=== PATIENT | female | born 1945 | race Caucasian/White ===

== ENCOUNTER 2023-03-09 16:29 | Inpatient (IN) ==
[2023-03-09] MEDS ORDERED: 0.9 % SODIUM CHLORIDE 250 ML IV SCH (16:45)
[2023-03-09] MEDS ORDERED: fentaNYL 100 MCG/2 ML VIAL IV ONE ×2 (17:34→18:50)
[2023-03-09 17:38] LABS: Blood Urea Nitrogen 17 mg/dL (8-23); Calcium 9.3 mg/dL (8.6-10.4); Carbon Dioxide 25 mmol/L (22-30); Chloride 106 mmol/L (96-108); Glomerular Filtration Rate 87; Glucose 127 mg/dL (70-105)
[2023-03-09 17:53] LABS: Basophils # (Auto) 0.01 K/mcL (0.00-0.30); Basophils % (Auto) 0.2 % (0.0-2.0); Eosinophils # (Auto) 0.02 K/mcL (0.00-0.70); Eosinophils % (Auto) 0.5 % (0.0-7.0); Hematocrit 33.9 % (34.1-44.9); Lymphocytes # (Auto) 0.46 K/mcL (1.50-4.80); Lymphocytes % (Auto) 10.6 % (15.5-49.0); Mean Cell Volume 100.3 fL (80.0-100.0); Mean Corpuscular HGB Conc 32.4 g/dL (31.0-36.0); Mean Platelet Volume 8.5 fL (8.8-12.5); Monocytes # (Auto) 1.21 K/mcL (0.10-0.90); Monocytes % (Auto) 27.8 % (1.0-12.0); Neutrophils % (Auto) 52.6 % (38.0-78.0); Platelet Count 161 K/mcL (140-440); RBC 3.38 M/mcL (3.59-5.38); Red Cell Distribution Width 13.1 % (11.5-14.5); WBC 4.4 K/mcL (4.5-11.0)
[2023-03-09 18:20] LABS: Prothrombin Time 13.6 sec (11.9-14.5)
[2023-03-09] MEDS ORDERED: HYDROmorphone 0.5 MG/0.5 ML SYRINGE IV ONE (18:52)
[2023-03-09] MEDS ORDERED: MAGNESIUM SULFATE 2 GM/50 ML BAG IV PRN (21:43)
[2023-03-09] MEDS ORDERED: IPRATROPIUM/ALBUTEROL 3 ML AMPUL.NEB NEB PRN (21:43)
[2023-03-09] MEDS ORDERED: HYDROcodone/APAP 5/325MG TABLET PO PRN (21:43)
[2023-03-09] MEDS ORDERED: POTASSIUM CHLORIDE 40 MEQ in DEXTROSE 5% IN WATER 500 ML IV PRN (21:43)
[2023-03-09] MEDS ORDERED: SENNOSIDES 1 TABLET PO PRN (21:43)
[2023-03-09] MEDS ORDERED: ACETAMINOPHEN 325 MG TABLET PO PRN (21:43)
[2023-03-09] MEDS ORDERED: ONDANSETRON 4 MG/2 ML VIAL IV PRN (21:43)
[2023-03-09] MEDS ORDERED: POLYETHYLENE GLYCOL 3350 17 GM PACKET PO PRN (21:43)
[2023-03-09] MEDS ORDERED: POTASSIUM CHLORIDE 20 MEQ TABLET PO PRN ×2 (21:43)
[2023-03-09] MEDS: morphine 4 MG/ML VIAL IV PRN (22:19)
[2023-03-09] MEDS: 0.9 % SODIUM CHLORIDE 10 ML SYRINGE IV SCH (22:23)
[2023-03-09] MEDS: DOCUSATE SODIUM 100 MG CAPSULE PO SCH (23:19)
[2023-03-09] MEDS ORDERED: 0.9 % SODIUM CHLORIDE 1,000 ML IV SCH (23:30)
[2023-03-10] MEDS: morphine 4 MG/ML VIAL IV PRN ×6 (01:31→19:24)
[2023-03-10 02:53] LABS: Appearance,Urine CLEAR (Clear); Bilirubin,Urine Negative (Negative); Color,Urine YELLOW; Culture Indicated,Urine No; Glucose,Urine (UA) Negative (Negative); Ketones,Urine Negative (Negative); Leukocyte Esterase,Urine 25 /uL (Negative); Mucus,Urine FEW /hpf; Nitrate,Urine Negative (Negative); Protein,Urine Negative (Negative); Specific Gravity,Urine 1.017 (1.000-1.035); Urine Blood >=1.0 mg/dL (Negative); Urine RBC > 182 /hpf (0-1); Urine Squamous Epithelial Cell 0 /hpf (0-4); Urine WBC 7 /hpf (0-4)
[2023-03-10] MEDS: 0.9 % SODIUM CHLORIDE 10 ML SYRINGE IV SCH ×3 (06:55→22:31)
[2023-03-10 07:04] LABS: ALT/SGPT < 5 U/L (<40); AST/SGOT 17 U/L (<32); Albumin 3.1 gm/dL (3.2-5.2); Albumin/Globulin Ratio 1.2 (1.0-2.3); Alkaline Phosphatase 74 U/L (39-117); Bilirubin,Direct < 0.2 mg/dL (0-0.3); Bilirubin,Total 0.4 mg/dL (0.1-1.0); Blood Urea Nitrogen 12 mg/dL (8-23); Calcium 8.8 mg/dL (8.6-10.4); Carbon Dioxide 22 mmol/L (22-30); Chloride 108 mmol/L (96-108); Globulin 2.5 gm/dL (2.2-3.7); Glomerular Filtration Rate 92; Glucose 145 mg/dL (70-105); Lactate Dehydrogenase 155 U/L (135-225); Phosphorous 3.1 mg/dL (2.5-4.5); Triglycerides 95 mg/dL (<150); Uric Acid 4.4 mg/dL (2.5-8.0)
[2023-03-10 07:39] LABS: Basophils # (Auto) 0.02 K/mcL (0.00-0.30); Basophils % (Auto) 0.3 % (0.0-2.0); Eosinophils # (Auto) 0 K/mcL (0.00-0.70); Eosinophils % (Auto) 0 % (0.0-7.0); Hematocrit 30.8 % (34.1-44.9); Hemoglobin 9.7 g/dL (11.2-15.7); Lymphocytes # (Auto) 0.23 K/mcL (1.50-4.80); Lymphocytes % (Auto) 3.3 % (15.5-49.0); Mean Cell Volume 104.1 fL (80.0-100.0); Mean Corpuscular HGB Conc 31.5 g/dL (31.0-36.0); Mean Platelet Volume 8.7 fL (8.8-12.5); Monocytes # (Auto) 1.42 K/mcL (0.10-0.90); Monocytes % (Auto) 20.1 % (1.0-12.0); Neutrophils % (Auto) 65.7 % (38.0-78.0); Platelet Count 148 K/mcL (140-440); RBC 2.96 M/mcL (3.59-5.38); Red Cell Distribution Width 13.4 % (11.5-14.5); WBC 7.1 K/mcL (4.5-11.0)
[2023-03-10] MEDS ORDERED: METHOCARBAMOL 750 MG TABLET PO PRN (08:20)
[2023-03-10] MEDS ORDERED: PSYLLIUM HUSK 5.8 GM PACKET PO PRN (08:29)
[2023-03-10] MEDS ORDERED: CARBOXYMETHYLCELLULOSE SODIUM 1 EACH DROPER.GEL OU PRN (08:31)
[2023-03-10] MEDS: TOLTERODINE 2 MG CAP.XL.24H PO SCH (09:48)
[2023-03-10] MEDS: SERTRALINE 50 MG TABLET PO SCH (09:49)
[2023-03-10] MEDS: POLYETHYLENE GLYCOL 3350 17 GM PACKET PO SCH (11:40)
[2023-03-10] MEDS: DOCUSATE SODIUM 100 MG CAPSULE PO SCH ×2 (11:40→22:30)
[2023-03-10] MEDS ORDERED: ceFAZolin 2 GM in DEXTROSE 5% IN WATER 50 ML IV SCH (15:30)
[2023-03-10] MEDS ORDERED: ROCURONIUM 10 MG/ML ML IV ONE (15:32)
[2023-03-10] MEDS ORDERED: PROPOFOL 200 MG/20 ML VIAL IV ONE (15:32)
[2023-03-10] MEDS ORDERED: fentaNYL 100 MCG/2 ML VIAL ONE (15:33)
[2023-03-10] MEDS ORDERED: METOCLOPRAMIDE 10 MG/2 ML VIAL ONE (15:42)
[2023-03-10] MEDS ORDERED: ONDANSETRON 4 MG/2 ML VIAL IV PRN ×2 (16:51)
[2023-03-10] MEDS ORDERED: BENZOCAINE/MENTHOL 1 LOZENGE PO PRN (16:51)
[2023-03-10] MEDS ORDERED: FLEETS ADULT 1 DOSE ENEMA PR PRN (16:51)
[2023-03-10] MEDS ORDERED: BISACODYL 10 MG SUPP.RECT PR PRN (16:51)
[2023-03-10] MEDS ORDERED: MAGNESIUM HYDROXIDE 30 ML ORAL.SUSP PO PRN (16:51)
[2023-03-10] MEDS ORDERED: TRANEXAMIC ACID 1,000 MG/10 ML VIAL IV ONE (16:51)
[2023-03-10] MEDS ORDERED: POLYETHYLENE GLYCOL 3350 17 GM PACKET PO PRN (16:51)
[2023-03-10] MEDS ORDERED: KETOROLAC 15 MG/ML VIAL IV PRN (16:51)
[2023-03-10] MEDS ORDERED: HYDROmorphone 1 MG/ML SYRINGE IV PRN (16:51)
[2023-03-10] MEDS ORDERED: ACETAMINOPHEN 325 MG TABLET PO PRN (16:51)
[2023-03-10] MEDS ORDERED: TEMAZEPAM 15 MG CAPSULE PO PRN ×2 (16:51→21:00)
[2023-03-10] MEDS ORDERED: IPRATROPIUM/ALBUTEROL 3 ML AMPUL.NEB NEB PRN ×2 (17:09→17:27)
[2023-03-10] MEDS ORDERED: FLUMAZENIL 0.1 MG/ML ML IV PRN (17:09)
[2023-03-10] MEDS ORDERED: NALOXONE HCL 0.4 MG/ML VIAL IV PRN (17:09)
[2023-03-10] MEDS ORDERED: LACTATED RINGERS 1,000 ML IV SCH (17:15)
[2023-03-10] MEDS: fentaNYL 100 MCG/2 ML VIAL IV PRN ×2 (17:22→17:29)
[2023-03-10] MEDS: 0.45 % SODIUM CHLORIDE 1,000 ML IV SCH (18:11)
[2023-03-10] MEDS: SENNOSIDES 1 TABLET PO SCH (22:30)
[2023-03-10] MEDS: ASPIRIN 81 MG TAB.CHEW CHEWED SCH (22:31)
[2023-03-10] MEDS: ceFAZolin 1 GM VIAL IV SCH (23:26)
[2023-03-11] MEDS: 0.45 % SODIUM CHLORIDE 1,000 ML IV SCH (04:23)
[2023-03-11] MEDS: 0.9 % SODIUM CHLORIDE 10 ML SYRINGE IV SCH ×3 (05:08→21:01)
[2023-03-11] MEDS: ceFAZolin 1 GM VIAL IV SCH (07:27)
[2023-03-11] MEDS: DOCUSATE SODIUM 100 MG CAPSULE PO SCH ×2 (08:46→21:00)
[2023-03-11] MEDS: ASPIRIN 81 MG TAB.CHEW CHEWED SCH ×2 (08:46→21:00)
[2023-03-11] MEDS: POLYETHYLENE GLYCOL 3350 17 GM PACKET PO SCH (08:47)
[2023-03-11] MEDS: SERTRALINE 50 MG TABLET PO SCH (08:47)
[2023-03-11] MEDS: TOLTERODINE 2 MG CAP.XL.24H PO SCH (08:47)
[2023-03-11] MEDS: CYANOCOBALAMIN (VITAMIN B-12) 500 MCG TABLET PO SCH (09:15)
[2023-03-11] MEDS: HYDROcodone/APAP 10/325MG TABLET PO PRN ×2 (11:33→15:15)
[2023-03-11] MEDS ORDERED: 0.9 % SODIUM CHLORIDE 1,000 ML IV SCH (16:45)
[2023-03-11] MEDS: SENNOSIDES 1 TABLET PO SCH (21:00)
[2023-03-12] MEDS: 0.9 % SODIUM CHLORIDE 10 ML SYRINGE IV SCH ×3 (04:56→20:16)
[2023-03-12] MEDS: HYDROcodone/APAP 10/325MG TABLET PO PRN (04:56)
[2023-03-12 07:20] LABS: Blood Urea Nitrogen 12 mg/dL (8-23); Calcium 8.7 mg/dL (8.6-10.4); Carbon Dioxide 22 mmol/L (22-30); Chloride 106 mmol/L (96-108); Glomerular Filtration Rate 92; Glucose 143 mg/dL (70-105)
[2023-03-12 07:24] LABS: Hematocrit 21.6 % (34.1-44.9)
[2023-03-12] MEDS ORDERED: 0.9 % SODIUM CHLORIDE 250 ML IV SCH (07:45)
[2023-03-12] MEDS ORDERED: FUROSEMIDE 20 MG/2 ML VIAL IV ONE ×2 (07:48→16:00)
[2023-03-12] MEDS: TOLTERODINE 2 MG CAP.XL.24H PO SCH (08:55)
[2023-03-12] MEDS: CYANOCOBALAMIN (VITAMIN B-12) 500 MCG TABLET PO SCH (08:55)
[2023-03-12] MEDS: DOCUSATE SODIUM 100 MG CAPSULE PO SCH ×2 (08:55→20:16)
[2023-03-12] MEDS: ASPIRIN 81 MG TAB.CHEW CHEWED SCH ×2 (08:55→20:16)
[2023-03-12] MEDS: POLYETHYLENE GLYCOL 3350 17 GM PACKET PO SCH (08:55)
[2023-03-12] MEDS: SERTRALINE 50 MG TABLET PO SCH (08:55)
[2023-03-12] MEDS: SENNOSIDES 1 TABLET PO SCH (20:16)
[2023-03-13] MEDS: HYDROcodone/APAP 10/325MG TABLET PO PRN (03:10)
[2023-03-13] MEDS: 0.9 % SODIUM CHLORIDE 10 ML SYRINGE IV SCH ×3 (05:14→20:45)
[2023-03-13 06:29] LABS: Hematocrit 30.1 % (34.1-44.9); Hemoglobin 10.5 g/dL (11.2-15.7)
[2023-03-13] MEDS: CYANOCOBALAMIN (VITAMIN B-12) 500 MCG TABLET PO SCH (08:41)
[2023-03-13] MEDS: SERTRALINE 50 MG TABLET PO SCH (08:41)
[2023-03-13] MEDS: ASPIRIN 81 MG TAB.CHEW CHEWED SCH ×2 (08:41→20:44)
[2023-03-13] MEDS: POLYETHYLENE GLYCOL 3350 17 GM PACKET PO SCH (08:42)
[2023-03-13] MEDS: DOCUSATE SODIUM 100 MG CAPSULE PO SCH ×2 (08:42→20:44)
[2023-03-13] MEDS: TOLTERODINE 2 MG CAP.XL.24H PO SCH (08:42)
[2023-03-13] MEDS: SENNOSIDES 1 TABLET PO SCH (20:44)
[2023-03-14] MEDS: 0.9 % SODIUM CHLORIDE 10 ML SYRINGE IV SCH (04:47)
[2023-03-14] MEDS: HYDROcodone/APAP 10/325MG TABLET PO PRN (05:12)
[2023-03-14] MEDS: SERTRALINE 50 MG TABLET PO SCH (08:51)
[2023-03-14] MEDS: CYANOCOBALAMIN (VITAMIN B-12) 500 MCG TABLET PO SCH (08:51)
[2023-03-14] MEDS: POLYETHYLENE GLYCOL 3350 17 GM PACKET PO SCH (08:51)
[2023-03-14] MEDS: ASPIRIN 81 MG TAB.CHEW CHEWED SCH (08:51)
[2023-03-14] MEDS: DOCUSATE SODIUM 100 MG CAPSULE PO SCH (08:51)
[2023-03-14] MEDS: TOLTERODINE 2 MG CAP.XL.24H PO SCH (08:52)
== END 2023-03-14 13:20 ==
LOC: ED 16:29 → MEDSUR 21:38
PROVIDERS: ADMIT Internal Medicine; ATTEND Internal Medicine